=== PATIENT | male | born 1965 | race African-American/Black ===

== ENCOUNTER 2017-04-04 15:45 | Emergency (ER) | payer OTHER ==
[~2017-04-04] VITALS: Ht 188 cm; Wt 98.0 kg
[~2017-04-04 15:45] MED LIST: HYDR25TA PO; LISI-660 PO
[2017-04-04 16:48] LABS: BASOPHILS % (AUTO) 0.3 % (0.0-2.0); EOSINOPHILS % (AUTO) 0.8 % (1.0-6.0); HEMATOCRIT 43.4 % (41-53); HEMOGLOBIN 14.6 g/dL (13.5-17.5); LYMPHOCYTES % (AUTO) 37.8 % (22.0-44.0); MEAN CORPUSCULAR HGB CONC 33.5 G/dL (31.0-37.0); MEAN CORPUSCULAR VOLUME 92 fL (80-100); MONOCYTES # (AUTO) 0.4 K/uL (0.1-1.0); NEUTROPHILS # (AUTO) 2.8 K/uL (1.8-7.7); NEUTROPHILS % (AUTO) 53.1 % (40.0-70.0); PLATELET COUNT (AUTO) 228 K/uL (150-450); RED CELL DISTRIBUTION WIDTH 13.9 % (11.5-14.5); WHITE BLOOD COUNT (AUTO) 5.3 K/uL (4.5-11.0)
[2017-04-04 17:02] LABS: ANION GAP 7 mmol/L (8-16); CARBON DIOXIDE 29 mmol/L (22-29); CHLORIDE 103 mmol/L (98-107); GLOMERULAR FILTR. RATE CALC > 60 mL/min (>60); POTASSIUM 3.7 mmol/L (3.5-5.1); SODIUM SERUM 139 mmol/L (136-145); UREA NITROGEN, BLOOD 10 mg/dL (7-18)
[2017-04-04 17:12] LABS: ALANINE AMINOTRANSFERASE 43 U/L (12-78); ALBUMIN 3.7 g/dL (3.4-5.0); ASPARTATE AMINOTRANSFERASE 24 U/L (15-37); BILIRUBIN,TOTAL 0.6 mg/dL (0.1-1.0); THYROID STIMULATING HORMONE 0.52 uIU/mL (0.36-3.74); TOTAL PROTEIN, SERUM 8.4 g/dL (6.4-8.2)
[2017-04-04 17:38] VITALS: BP 124/79
[2017-04-04 17:39] LABS: B-TYPE NATRIURETIC PEPTIDE < 5 pg/mL (0-100)
== END 2017-04-04 18:32 | disposition home or self-care (01) ==
LOC: EMS 15:46
DX: R42 Dizziness and giddiness (principal); R00.2 Palpitations; I10 Essential (primary) hypertension
CPT/HCPCS: 84443; 93005; 99285

== ENCOUNTER 2017-04-18 10:40 | Emergency (ER) | payer OTHER ==
[~2017-04-18] VITALS: Ht 188 cm; Wt 84.1 kg
[2017-04-18] MEDS ORDERED: LISI-661 PO (11:15)
[2017-04-18] MEDS ORDERED: ASPIRIN 81 MG CHEWABLE TABLET PO ONE (11:15)
[2017-04-18 11:37] LABS: BASOPHILS % (AUTO) 0.3 % (0.0-2.0); EOSINOPHILS % (AUTO) 0.7 % (1.0-6.0); HEMATOCRIT 43.6 % (41-53); HEMOGLOBIN 14.5 g/dL (13.5-17.5); LYMPHOCYTES # (AUTO) 2.2 K/uL (1.0-4.8); LYMPHOCYTES % (AUTO) 47.7 % (22.0-44.0); MEAN CORPUSCULAR HEMOGLOBIN 30.9 pg (26.0-34.0); MEAN CORPUSCULAR HGB CONC 33.3 G/dL (31.0-37.0); MEAN CORPUSCULAR VOLUME 93 fL (80-100); MONOCYTES # (AUTO) 0.5 K/uL (0.1-1.0); NEUTROPHILS # (AUTO) 1.8 K/uL (1.8-7.7); NEUTROPHILS % (AUTO) 39.3 % (40.0-70.0); PLATELET COUNT (AUTO) 223 K/uL (150-450); RED CELL DISTRIBUTION WIDTH 13.5 % (11.5-14.5); WHITE BLOOD COUNT (AUTO) 4.6 K/uL (4.5-11.0)
[2017-04-18 11:46] LABS: ANION GAP 12 mmol/L (8-16); CALCIUM, TOTAL 8.9 mg/dL (8.8-10.5); CARBON DIOXIDE 24 mmol/L (22-29); CHLORIDE 103 mmol/L (98-107); CREATININE 1.05 mg/dL (0.60-1.30); GLOMERULAR FILTR. RATE CALC > 60 mL/min (>60); POTASSIUM 3.1 mmol/L (3.5-5.1); SODIUM SERUM 139 mmol/L (136-145); UREA NITROGEN, BLOOD 12 mg/dL (7-18)
[2017-04-18 11:48] LABS: INR 1.1 (0.9-1.1); PROTHROMBIN TIME 11.4 SEC (9.4-11.6)
[2017-04-18 12:02] LABS: B-TYPE NATRIURETIC PEPTIDE < 5 pg/mL (0-100)
[2017-04-18 12:06] LABS: APPEARANCE,URINE CLEAR (CLEAR); GLUCOSE, URINE (UA) NEGATIVE (NEGATIVE); KETONES,URINE NEGATIVE (NEGATIVE); LEUKOCYTE ESTERASE ,URINE NEGATIVE (NEGATIVE); OCCULT BLOOD,URINE NEGATIVE (NEGATIVE); PROTEIN,URINE NEGATIVE (NEGATIVE)
[2017-04-18 12:10] LABS: ADD UA MICROSCOPIC NO
[2017-04-18 12:11] LABS: ALANINE AMINOTRANSFERASE 46 U/L (12-78); ALBUMIN 3.6 g/dL (3.4-5.0); ASPARTATE AMINOTRANSFERASE 24 U/L (15-37); BILIRUBIN,TOTAL 0.5 mg/dL (0.1-1.0); CREATINE KINASE MB 1.1 ng/mL (0-5); CREATINE KINASE, TOTAL 136 U/L (39-308); TOTAL PROTEIN, SERUM 8.2 g/dL (6.4-8.2)
[2017-04-18] MEDS ORDERED: POTASSIUM CHLORIDE 20 MEQ ER TABLET PO ONE (12:30)
[2017-04-18 14:15] VITALS: BP 145/92
== END 2017-04-18 14:39 | disposition home or self-care (01) ==
LOC: EMS 10:43
DX: R00.2 Palpitations (principal); I10 Essential (primary) hypertension; Z79.82 Long term (current) use of aspirin
CPT/HCPCS: 93005; 99285

== ENCOUNTER 2018-02-25 10:50 | Emergency (ER) | payer OTHER ==
[~2018-02-25] VITALS: Ht 188 cm; Wt 79.5 kg
[~2018-02-25 10:50] MED LIST changes: -LISI-660 PO; +LISI-661 PO
[2018-02-25] MEDS ORDERED: SODIUM CHLORIDE 0.9% 1,000 ML IV ONE (10:56)
[2018-02-25] MEDS ORDERED: MethylPREDNISolone SOD SUCC 125 MG/2 ML VIAL IVP ONE (11:00)
[2018-02-25] MEDS ORDERED: DiphenhydrAMINE HCL 50 MG/ML VIAL IVP ONE (11:00)
[2018-02-25] MEDS ORDERED: FAMOTIDINE 10 MG/ML 2 ML VIAL IVP ONE (11:00)
[2018-02-25 11:37] LABS: BASOPHILS % (AUTO) 0.4 % (0.0-2.0); EOSINOPHILS % (AUTO) 0.7 % (1.0-6.0); HEMATOCRIT 46.4 % (41-53); HEMOGLOBIN 15.9 g/dL (13.5-17.5); LYMPHOCYTES # (AUTO) 2.4 K/uL (1.0-4.8); LYMPHOCYTES % (AUTO) 35.8 % (22.0-44.0); MEAN CORPUSCULAR HEMOGLOBIN 30.9 pg (26.0-34.0); MEAN CORPUSCULAR HGB CONC 34.3 G/dL (31.0-37.0); MEAN CORPUSCULAR VOLUME 90 fL (80-100); MONOCYTES # (AUTO) 0.5 K/uL (0.1-1.0); MONOCYTES % (AUTO) 7.7 % (2.0-9.0); NEUTROPHILS # (AUTO) 3.7 K/uL (1.8-7.7); NEUTROPHILS % (AUTO) 55.4 % (40.0-70.0); PLATELET COUNT (AUTO) 263 K/uL (150-450); RED BLOOD CELL COUNT(AUTO) 5.14 MIL/uL (4.50-5.90); RED CELL DISTRIBUTION WIDTH 13.5 % (11.5-14.5)
[2018-02-25 11:41] LABS: ANION GAP 4 mmol/L (8-16); CALCIUM, TOTAL 8.7 mg/dL (8.8-10.5); CARBON DIOXIDE 32 mmol/L (22-29); CHLORIDE 104 mmol/L (98-107); CREATININE 1.07 mg/dL (0.60-1.30); GLOMERULAR FILTR. RATE CALC > 60 mL/min (>60); GLUCOSE,RANDOM 85 mg/dL (70-110); POTASSIUM 3.1 mmol/L (3.5-5.1); SODIUM SERUM 140 mmol/L (136-145); UREA NITROGEN, BLOOD 8 mg/dL (7-18)
[2018-02-25 11:47] LABS: ALANINE AMINOTRANSFERASE 51 U/L (12-78); ALBUMIN 3.7 g/dL (3.4-5.0); ALKALINE PHOSPHATASE 145 U/L (46-116); ASPARTATE AMINOTRANSFERASE 27 U/L (15-37); BILIRUBIN,TOTAL 0.3 mg/dL (0.1-1.0); TOTAL PROTEIN, SERUM 8.8 g/dL (6.4-8.2)
[2018-02-25] MEDS ORDERED: SODIUM CHLORIDE 0.9% 100 ML ONE (14:25)
[2018-02-25] MEDS ORDERED: IOVERSOL 350 MG/ML 100 ML VIAL ONE (14:25)
[2018-02-25] MEDS ORDERED: EPINEPHrine 1:1,000 [1 MG/ML] AMP IM ONE (16:15)
[2018-02-25] MEDS ORDERED: CLINDAMYCIN 600 MG/D5% WATER 50 ML IV ONE (16:30)
[2018-02-25 17:47] VITALS: BP 131/82
== END 2018-02-25 18:15 | disposition short-term general hospital (02) ==
LOC: EMS 10:51
DX: T78.2XXA Anaphylactic shock, unspecified, initial encounter (principal); J98.8 Other specified respiratory disorders; K11.20 Sialoadenitis, unspecified; F41.9 Anxiety disorder, unspecified; I10 Essential (primary) hypertension; Y92.89 Other specified places as the place of occurrence of the external cause
CPT/HCPCS: 36415; 70491; 80053; 85025; 93005; 96365; 96366; 96372; 96375; 99285; J0171; J1200; J2930; J3490 ×2; J7030; J7050; Q9967